=== PATIENT | female | born 1955 | race African-American/Black ===

== ENCOUNTER → 2016-08-13 | Outpatient (CLI) | payer MEDICARE, BC ==
[2014-09-13 13:45] VITALS: BP 178/88
[~2016-08-13] MED LIST: ALBU2.5V14 NEB; ALPR0.25 PO; AMLO1TAB4 PO; CINA30TA PO; CITA40TA5 PO; CYCL10TA2 PO; FENT1PAT21 TD; HYDR-2762 PO; INSU100C4 SQ; INSU100V13 SQ; INSU100V8 SQ; LABE300T PO; LEVO150T5 PO; PANT40TA5 PO; SEVE800T9 PO; VALS160T3 PO; VENTOLIN HFA18 GM IH; ZOLP10TA PO; [UNRECOGNIZED DRUG - OTHER]
--- NOTE | 2016-08-13 13:51 | RAD ---
DATE: 08/13/2016 EXAM: DIGITAL SCREEN BILAT W/CAD HISTORY: Screening study. COMPARISON: 08/10/2015 This study was interpreted with the benefit of Computerized Aided Detection (CAD ). FINDINGS: Digital MLO and CC mammograms of both breasts were obtained. Comparison study is dated 08/10/2015. The breast parenchyma is heterogeneously dense which can obscure a lesion on mammography (breast density code C). Benign- appearing and vascular calcifications are seen scattered throughout both breasts. No spiculated mass is seen. No malignant appearing calcification or area of architectural distortion is noted. A small intramammary lymph node is seen within the upper outer quadrant of the left breast, unchanged. IMPRESSION: BI-RADS Category 1, negative. There is no mammographic evidence of malignancy. Routine yearly screening mammography is recommended for follow-up. BI-RADS CATEGORY: 1 NEGATIVE RECOMMENDED FOLLOW-UP: Routine yearly screening mammography. PQRS compliance statement: Patient information was entered into a reminder system with a target due date 08/13/2017 for the next mammogram. Mammography is a sensitive method for finding small breast cancers, but it does not detect them all and is not a substitute for careful clinical examination. A negative mammogram does not negate a clinically suspicious finding and should not result in delay in biopsying a clinically suspicious abnormality. "Our facility is accredited by the [employer] Mamm[employer]." MTDD
== END | disposition home or self-care (01) ==
LOC: MAMMO 08:04
PROVIDERS: ATTEND Internal Medicine
DX: Z12.31 Encounter for screening mammogram for malignant neoplasm of breast (principal)
CPT/HCPCS: G0202; 77067

== ENCOUNTER → 2017-08-14 | Outpatient (CLI) | payer MEDICARE, BC | END | disposition home or self-care (01) | LOC: MAMMO 07:53 | DX: Z12.31 Encounter for screening mammogram for malignant neoplasm of breast (principal) | CPT/HCPCS: 77063; 77067 ==

== ENCOUNTER → 2018-08-18 | Outpatient (CLI) | payer BC, MEDICARE ==
[2014-09-13 13:45] VITALS: BP 178/88
[~2018-08-18] MED LIST changes: -CINA30TA PO; +CINA30TA2 PO; -HYDR-2762 PO; +HYDR-2765 PO; -LABE300T PO; +LABE300T2 PO
--- NOTE | 2018-08-18 09:16 | RAD ---
DATE: 08/18/2018 EXAM: MAMMO CONOR SCREENING BILATERAL HISTORY: Routine screening COMPARISON: 08/14/2017 This study was interpreted with the benefit of Computerized Aided Detection (CAD). Breast Density: HETERO The breast parenchyma is heterogenously dense, which could reduce sensitivity of mammography. Breast parenchyma level C. FINDINGS: 2-D and 3-D tomosynthesis imaging was performed in CC and MLO projections. There is an unchanged small nodule in the left breast laterally which is most likely a intramammary lymph node. No new or enlarging breast densities are seen. Benign type calcifications are present. No suspicious microcalcifications have developed. IMPRESSION: Stable mammograms without evidence of malignancy. BI-RADS CATEGORY: 2 BENIGN FINDING(S) RECOMMENDED FOLLOW-UP: 12M 12 MONTH FOLLOW-UP PQRS compliance statement: Patient information was entered into a reminder system with a target due date for the next mammogram. Mammography is a sensitive method for finding small breast cancers, but it does not detect them all and is not a substitute for careful clinical examination. A negative mammogram does not negate a clinically suspicious finding and should not result in delay in biopsying a clinically suspicious abnormality. "Our facility is accredited by the [employer] Mammography [employer]."
== END | disposition home or self-care (01) ==
LOC: MAMMO 08:03
PROVIDERS: ATTEND Internal Medicine
DX: Z12.31 Encounter for screening mammogram for malignant neoplasm of breast (principal)
CPT/HCPCS: 77063; 77067